=== PATIENT | female | born 1985 | race African-American/Black ===

== ENCOUNTER 2022-11-29 21:45 | Emergency (ER) | payer OTHER ==
[2022-11-29] MEDS ORDERED: Ibuprofen 800 MG TAB ONE (22:15)
[2022-11-29] MEDS ORDERED: Oseltamivir 75 MG CAP ONE (22:19)
== END 2022-11-29 22:29 | disposition home or self-care (01) ==
LOC: NAV ERS 21:45
DX: J10.1 Influenza due to other identified influenza virus with other respiratory manifestations (principal)
CPT/HCPCS: 87804; 99283

== ENCOUNTER 2023-06-27 15:01 | Emergency (ER) | payer OTHER | END 2023-06-27 17:10 | disposition home or self-care (01) | LOC: NAV ERS 15:01 | DX: J06.9 Acute upper respiratory infection, unspecified (principal); B34.9 Viral infection, unspecified; Z20.822 Contact with and (suspected) exposure to COVID-19 | CPT/HCPCS: 87635; 87804; 99283 ==

== ENCOUNTER 2024-03-29 20:52 | Emergency (ER) | payer OTHER, SELFPAY ==
[2024-03-29] MEDS ORDERED: Aspirin Chewable 81 MG TAB ONE (21:12)
[2024-03-29] MEDS ORDERED: Nitroglycerin 0.4 MG TAB (25 Tab Bottle) ONE (21:15)
[2024-03-29 21:32] LABS: Hematocrit 34.3 % (36.0-47.0); Hemoglobin 10.4 g/dL (12.0-16.0); Manual Diff?? NO; Mean Corpuscular HGB CONC 30.3 g/dL (32.0-36.0); Mean Corpuscular Hemoglobin 24.1 pg (27.0-31.0); Mean Corpuscular Volume 79.6 fl (78.0-98.0); Mean Platelet Volume 5.9 fL (7.4-10.4); Platelet Count 225 10x3/uL (130-400); RBC Distribution Width 13.2 % (11.5-14.5); White Blood Cell (WBC) Count 3.7 10x3/uL (4.8-10.8)
[2024-03-29 21:33] LABS: #Eosinphils 0.1 thou/uL (0.0-0.7); #Lymphocytes 1.6 thou/uL (1.20-3.40); #Monocytes 0.4 thou/uL (0.11-0.59); #Neutrophils 1.5 thou/uL (1.40-6.50); %Basophils 1.2 % (0.0-1.0); %Eosinophils 2.7 % (0.0-10.0); %Lymphocytes 44.9 % (21.0-51.0); %Monocytes 10.1 % (0.0-10.0); %Neutrophils 41.1 % (42.0-75.0)
[2024-03-29 21:49] LABS: AST (SGOT) 11 U/L (5-34); Anion Gap 15 mmol/L (10-20); Bilirubin, Total 0.3 mg/dL (0.2-1.2); Calcium 9.3 mg/dL (7.8-10.44); Carbon Dioxide 22 mmol/L (22-29); Chloride 105 mmol/L (98-107); Potassium 3.7 mmol/L (3.5-5.1); Protein, Total 6.2 g/dL (6.0-8.3); Sodium 138 mmol/L (136-145)
[2024-03-29 21:52] LABS: Troponin I Less than 0.010 ng/mL (< 0.028)
[2024-03-29 22:10] LABS: ALT (SGPT) 9 U/L (8-55); Alkaline Phosphatase 40 U/L (40-110); BUN (Urea Nitrogen) 11 mg/dL (7.0-18.7); Calc. Creatinine Clearance 0 mL/min (70-130); Estimated GFR 102; Glucose 81 mg/dL (70-105)
[2024-03-30] MEDS ORDERED: Naproxen 500 MG TAB ONE (00:04)
== END 2024-03-30 00:15 | disposition home or self-care (01) ==
LOC: NAV ERS 20:52
DX: R07.89 Other chest pain (principal); I10 Essential (primary) hypertension; R20.2 Paresthesia of skin
CPT/HCPCS: 36415; 70450; 71045; 80053; 84443; 84484; 85025; 93005